=== PATIENT | female | born 1935 | race Two or more races ===

== ENCOUNTER 2018-12-07 08:46 | Outpatient (CLI) | payer OTHER | END 2018-12-07 09:09 | disposition home or self-care (01) | LOC: LAB 08:46 | DX: D64.89 Other specified anemias (principal); R74.0 Nonspecific elevation of levels of transaminase and lactic acid dehydrogenase [LDH]; E03.8 Other specified hypothyroidism; E55.9 Vitamin D deficiency, unspecified; D55.0 Anemia due to glucose-6-phosphate dehydrogenase [G6PD] deficiency; N39.0 Urinary tract infection, site not specified ==